=== PATIENT | male | born 1965 | race Caucasian/White ===

== ENCOUNTER 2016-08-17 13:23 | Outpatient (CLI) | payer OTHER ==
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
== END 2016-08-17 23:00 ==
LOC: LAB SRH 13:23 → XR SRH 13:23 → LAB SRH 23:00
DX: Z04.1 Encounter for examination and observation following transport accident (principal)